=== PATIENT | female | born 1990 | race Caucasian/White ===

== ENCOUNTER 2019-11-27 20:16 | Emergency (ER) | payer MEDICAID, OTHER ==
[~2019-11-27] VITALS: Ht 165.1 cm; Wt 66.8 kg
[~2019-11-27 20:16] MED LIST: CYCL-1 PO; NABU500T2 PO
[2019-11-27 20:21] VITALS: BP 148/88
[2019-11-27] MEDS ORDERED: HYDROcodone/acetaminophen 5mg/325mg tablet PO ONE (20:45)
[2019-11-27] MEDS ORDERED: ondansetron 4mg rapidly disintigrating tab PO ONE (20:45)
[2019-11-27] MEDS ORDERED: PENI500T2 PO (20:46)
[2019-11-27] MEDS ORDERED: IBUP-1984 PO (20:46)
== END 2019-11-27 21:21 | disposition home or self-care (01) ==
LOC: ER 20:16
DX: K04.7 Periapical abscess without sinus (principal); F41.9 Anxiety disorder, unspecified; G89.29 Other chronic pain; J45.909 Unspecified asthma, uncomplicated; Z56.0 Unemployment, unspecified
CPT/HCPCS: 99281; 99283

== ENCOUNTER 2019-12-06 23:16 | Emergency (ER) | payer MEDICAID ==
[~2019-12-06] VITALS: Ht 167.6 cm; Wt 75.0 kg
[~2019-12-06 23:16] MED LIST changes: +PENI500T2 PO
--- NOTE | 2019-12-06 23:43 | NUR ---
Dr. Rodriguez came to evaluate the patient. Pt expressed concern about the pressure behind her left eye and reports she believes she needs to have a CT scan.
--- NOTE | 2019-12-07 00:20 | NUR ---
Pt to CT scan via w/c. Pt given a simple mask to wear while in CT and instructed to continue the use of the mask for her protection upon discharge to home.
--- NOTE | 2019-12-07 00:34 | NUR ---
Pt returned from CT to ED bed 16.
[2019-12-07 00:46] VITALS: BP 138/83
[2019-12-07] MEDS ORDERED: AMOX-422 PO (00:50)
== END 2019-12-07 01:07 | disposition home or self-care (01) ==
LOC: ER 23:16
DX: H57.12 Ocular pain, left eye (principal); J01.00 Acute maxillary sinusitis, unspecified; G89.29 Other chronic pain; F41.9 Anxiety disorder, unspecified; F15.90 Other stimulant use, unspecified, uncomplicated; R42 Dizziness and giddiness; Z56.0 Unemployment, unspecified
CPT/HCPCS: 70450; 70486; 99285

== ENCOUNTER 2023-05-06 12:31 | Inpatient (IN) | payer MEDICAID ==
[~2023-05-06] VITALS: Ht 165.1 cm; Wt 78.5 kg
[~2023-05-06 12:31] MED LIST changes: -CYCL-1 PO; +LURA20TA8 PO; -NABU500T2 PO; +NICO-668 BC; +NO HOME MEDS; -PENI500T2 PO
[2023-05-06] MEDS ORDERED: diphenhydrAMINE 50 mg/ml inj IM ONE (12:40)
[2023-05-06] MEDS ORDERED: haloperidol lactate 5mg/ml inj IM ONE (12:40)
[2023-05-06] MEDS ORDERED: LORazepam 2 mg/ml vial IM ONE (12:40)
[2023-05-06 13:20] LABS: EOSINOPHILS % (AUTO) 1.1 % (0-6); HEMATOCRIT 31.2 % (35.0-45.0); HEMOGLOBIN 9.5 g/dl (12.0-16.0); LYMPHOCYTES # (AUTO) 0.8 X10'3 (1.1-4.8); LYMPHOCYTES % (AUTO) 20.5 % (21-51); MEAN CORPUSCULAR HEMOGLOBIN 22.7 PG (27.0-31.0); MEAN CORPUSCULAR HGB CONC 30.4 g/dL (33.0-36.5); MEAN CORPUSCULAR VOLUME 74.8 FL (78-98); MEAN PLATELET VOLUME 7.6 FL (7.4-10.4); MONOCYTES # (AUTO) 0.4 X10'3 (0-0.9); MONOCYTES % (AUTO) 9.3 % (2-12); NEUTROPHILS # (AUTO) 2.6 X10'3 (1.8-7.7); NEUTROPHILS % (AUTO) 68.1 % (42-75); PLATELET COUNT 371 X10'3 (140-440); RED BLOOD COUNT 4.17 X10'6 (4.20-5.60); RED CELL DISTRIBUTION WIDTH 17.4 % (11.5-14.5); WHITE BLOOD COUNT 3.8 X10'3 (4.5-11.0)
[2023-05-06 13:34] LABS: ALANINE AMINOTRANSFERASE 12 U/L (12-78); ALBUMIN 3.8 G/DL (3.4-5.0); ALBUMIN/GLOBULIN RATIO 1.1 (1.1-1.5); ALKALINE PHOSPHATASE 51 IU/L (46-116); ANION GAP 17 (8-16); ASPARTATE AMINO TRANSFERASE 24 U/L (10-37); BILIRUBIN,TOTAL 0.5 MG/DL (0.1-1.0); BLOOD UREA NITROGEN 8 MG/DL (7-18); BUN/CREATININE RATIO 13.8 (10.0-20.0); CALCIUM 8.8 MG/DL (8.5-10.1); CHLORIDE 105 MMOL/L (99-107); CREATININE 0.58 MG/DL (0.40-0.90); GLUCOSE 134 MG/DL (70-104); SODIUM 143 MMOL/L (135-145); TOTAL CARBON DIOXIDE 20.8 MMOL/L (24-32); TOTAL PROTEIN 7.4 G/DL (6.4-8.2); eCRCL 133 ML/MIN; eGFR > 90 ML/MIN
[2023-05-06 13:43] LABS: ETHANOL < 10 MG/DL (<10); THYROID STIMULATING HORMONE 0.57 ulU/ml (0.34-4.50)
--- NOTE | 2023-05-06 13:52 | NUR ---
MOTHER MANAN NOAH [phone].
[2023-05-06 14:42] LABS: BILIRUBIN,URINE NEGATIVE (Neg); CLARITY,URINE SLIGHTLY CLOUDY (Clear); COLOR,URINE YELLOW (Yellow); GLUCOSE, URINE NEGATIVE (Neg); KETONES,URINE >=80 mg/dl (Neg); LEUKOCYTE ESTERASE ,URINE NEGATIVE (Neg); NITRITES, URINE NEGATIVE (Neg); OCCULT BLOOD,URINE NEGATIVE (Neg); PH,URINE 6.5 (4.8-8.0); PROTEIN,URINE TRACE mg/dl (Neg)
[2023-05-06 14:53] LABS: UA COLLECTION TYPE STRAIGHT CATH; URINE AMPHETAMINE SCREEN NEGATIVE (Neg); URINE BARBITUATE SCREEN NEGATIVE (Neg); URINE BENZODIAZEPINES SCREEN NEGATIVE (Neg); URINE CANNABINOID SCREEN NEGATIVE (Neg); URINE COCAINE SCREEN NEGATIVE (Neg); URINE METHADONE SCREEN NEGATIVE (Neg); URINE OPIATE SCREEN NEGATIVE (Neg); URINE PHENCYCLIDINE SCREEN NEGATIVE (Neg)
[2023-05-06 14:54] LABS: BACTERIA,URINE 1+ /HPF (Neg); MUCUS STRANDS MODERATE /LPF (Neg); RBC,URINE 0-2 /HPF (0-2); SQUAMOUS EPITHELIAL CELL,UR MODERATE /LPF (FEW); WBC,URINE 0-4 /HPF (0-4)
[2023-05-06] MEDS ORDERED: potassium Cl 20 mEq SR tablet PO ONE (15:15)
[2023-05-06] MEDS ORDERED: magnesium oxide 400mg tablet PO ONE (15:15)
[2023-05-06] MEDS ORDERED: traZODone 50mg tablet PO PRN (15:25)
[2023-05-06 15:28] LABS: MAGNESIUM 1.7 MG/DL (1.5-2.4)
--- NOTE | 2023-05-06 16:08 | NUR ---
[facility] PACKET SENT @[phone]
--- NOTE | 2023-05-06 18:18 | NUR ---
Report given to RN in overflow
--- NOTE | 2023-05-06 18:35 | NUR ---
The patient moved to bed 25 in the ER overflow. She ambulated without difficulty. She is currently cooperative but very sleepy. She denied that she is currently hearing voices. Awake only briefly and is now back asleep.
[2023-05-06] MEDS: OLANZapine 5mg rapidly disint. tablet PO SCH (20:07)
--- NOTE | 2023-05-06 21:00 | NUR ---
The patient appears to be sleeping
--- NOTE | 2023-05-06 21:55 | NUR ---
Nurse to nurse with [facility], [facility].
[2023-05-06 22:08] LABS: URINE HCG NEGATIVE (NEG)
--- NOTE | 2023-05-06 22:22 | NUR ---
The patient has been declined at [facility], [facility].
--- NOTE | 2023-05-06 23:32 | NUR ---
The patient appears to be sleeping
--- NOTE | 2023-05-07 01:21 | NUR ---
The patient appears to be sleeping
--- NOTE | 2023-05-07 03:00 | NUR ---
The patient appears to be sleeping
--- NOTE | 2023-05-07 05:04 | NUR ---
The patient appears to be sleeping
--- NOTE | 2023-05-07 07:00 | NUR ---
Pt resting in bed. No acute distress noted at this time.
[2023-05-07] MEDS: OLANZapine 5mg rapidly disint. tablet PO SCH ×2 (08:07→20:34)
--- NOTE | 2023-05-07 08:12 | NUR ---
Pt took morning meds with no issues. Pt sat up on bed and ate some of breakfast tray. Pt currently laying down resting with eyes closed. No acute distress noted at this time.
--- NOTE | 2023-05-07 09:36 | NUR ---
Pt currently resting in bed with eyes closed. No acute distress noted at this time.
[2023-05-07 11:34] VITALS: BP 133/87; PULSE 106; RESP 14; TEMP 97.8; O2SAT 100
[2023-05-07] MEDS ORDERED: NICOTINE POLACRILEX 2 MG LOZENGE BC PRN (11:45)
[2023-05-07] MEDS ORDERED: magnesium hydroxide 30ml (MOM) UD suspension PO PRN (11:45)
[2023-05-07] MEDS ORDERED: mag hydrox/Alum hydrox/simeth 30ml oral suspension PO PRN (11:45)
[2023-05-07] MEDS ORDERED: acetaminophen 325mg tablet PO PRN ×2 (11:45)
[2023-05-07] MEDS ORDERED: loperamide 2mg capsule PO PRN (11:45)
--- NOTE | 2023-05-07 13:23 | NUR ---
Malnutrition Consult: Pt admit DX anxiety d/o, PTSD, and unspecified psychosis reports 2-13 pounds wt loss w/ decreased intake [employer]ATCH[employer]KER [employer]ENTICE per EMR. Pt current standing scaled wt 81.8kg w/ last scaled wt 85.7kg 09/29/20 in EMR. Pt appears WD/WN per ER note w/ current scaled wt appropriate pending physical assessment though no wounds present per EMR. PO pending for initial meals though at this time pt lacks minimum two malnutrition criteria. Will monitor for further malnutrition criteria this admit. Addendum: 05/07/23 at [address] Amended: Links added.
[2023-05-07 14:11] VITALS: RESP 14; O2SAT 100
[2023-05-07] MEDS ORDERED: zolpidem 5mg tablet PO PRN (14:30)
[2023-05-07] MEDS ORDERED: hydrOXYzine 25 MG tablet PO PRN (14:30)
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
[2023-05-07 19:00] VITALS: BP 134/78; PULSE 104; RESP 16; TEMP 99.8; O2SAT 100
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
[2023-05-08 07:00] VITALS: RESP 14; O2SAT 100
[2023-05-08 07:21] VITALS: BP 127/83; PULSE 75; RESP 14; TEMP 98.5; O2SAT 97
[2023-05-08 07:54] LABS: ALANINE AMINOTRANSFERASE 8 U/L (12-78); ALBUMIN 3.6 G/DL (3.4-5.0); ALKALINE PHOSPHATASE 47 IU/L (46-116); ANION GAP 10 (8-16); ASPARTATE AMINO TRANSFERASE 15 U/L (10-37); BILIRUBIN,TOTAL 0.4 MG/DL (0.1-1.0); BLOOD UREA NITROGEN 12 MG/DL (7-18); BUN/CREATININE RATIO 20.3 (10.0-20.0); CALCIUM 8.9 MG/DL (8.5-10.1); CHLORIDE 108 MMOL/L (99-107); CHOL/HDL RATIO 3.4 (0.00-4.99); CHOLESTEROL 183 MG/DL (0-200); CREATININE 0.59 MG/DL (0.40-0.90); GLUCOSE 98 MG/DL (70-104); HDL CHOLESTEROL 54 MG/DL (35-60); LDL CHOLESTEROL 104 MG/DL (50-100); POTASSIUM 3.9 MMOL/L (3.5-5.1); SODIUM 142 MMOL/L (135-145); TOTAL CARBON DIOXIDE 24.1 MMOL/L (24-32); TOTAL PROTEIN 7.3 G/DL (6.4-8.2); TRIGLYCERIDES 88 MG/DL (20-135); eCRCL 121 ML/MIN; eGFR > 90 ML/MIN
[2023-05-08] MEDS ORDERED: nicotine 21mg patch - 24 hr TD SCH (08:00)
[2023-05-08] MEDS: OLANZapine 5mg rapidly disint. tablet PO SCH ×2 (08:14→20:12)
[2023-05-08 08:15] LABS: HEMOGLOBIN A1C 5.1 % (4.5-6.2)
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
[2023-05-08 19:31] VITALS: BP 134/76; PULSE 64; RESP 14; TEMP 99.5; O2SAT 98
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
[2023-05-09 07:00] VITALS: RESP 14; O2SAT 100
[2023-05-09 07:23] VITALS: BP 118/81; PULSE 74; RESP 16; TEMP 98.6; O2SAT 99
[2023-05-09] MEDS: OLANZapine 5mg rapidly disint. tablet PO SCH (07:45)
[2023-05-09] MEDS ORDERED: HYDR50TA65 PO (11:44)
[2023-05-09] MEDS ORDERED: OLAN5TAB29 SL (11:44)
[2023-05-09] MEDS ORDERED: NAPR-1170 PO (11:44)
--- NOTE | 2023-05-09 13:52 | NUR ---
Patient discharging back to her home
== END 2023-05-09 13:57 | disposition home or self-care (01) | DRG 750 ==
LOC: ER 12:31 → ED HOLD 05-07 09:35 → ADULT MH 05-07 11:40
PROVIDERS: ADMIT Psychiatry & Neurology Psychiatry; ATTEND Psychiatry & Neurology Psychiatry
DX: F25.0 Schizoaffective disorder, bipolar type (principal); F23 Brief psychotic disorder; D50.9 Iron deficiency anemia, unspecified; E87.6 Hypokalemia; F10.10 Alcohol abuse, uncomplicated; D72.819 Decreased white blood cell count, unspecified; F12.10 Cannabis abuse, uncomplicated; F43.12 Post-traumatic stress disorder, chronic; M19.90 Unspecified osteoarthritis, unspecified site; Z20.822 Contact with and (suspected) exposure to COVID-19; G89.29 Other chronic pain; M54.9 Dorsalgia, unspecified; J45.909 Unspecified asthma, uncomplicated; I10 Essential (primary) hypertension; Z79.899 Other long term (current) drug therapy; Z82.3 Family history of stroke; Z59.00 Homelessness unspecified; F43.10 Post-traumatic stress disorder, unspecified
CPT/HCPCS: 36415; 71045; 80053; 80061; 80305; 80320; 81001; 81025; 83036; 83735; 84443; 85025; 87081; 87811; 96372; 99285; C1758; J1200; J1630; J2060; Q0177

== ENCOUNTER 2023-10-10 21:30 | Inpatient (IN) | payer MEDICAID ==
[~2023-10-10] VITALS: Ht 167.6 cm; Wt 86.4 kg
[~2023-10-10 21:30] MED LIST changes: +DULO-79 PO; +FERR325T28 PO; +HYDR50TA65 PO; -LURA20TA8 PO; +NAPR-56 PO; -NICO-668 BC; -NO HOME MEDS; +OLAN5TAB5 PO; +PALI156D IM; +PANT40TA54 PO; +PROP10TA10 PO; +ZOLP5TAB8 PO
[2023-10-10] MEDS: normal saline 1000ml 1,000 ML IV ONE (21:50)
[2023-10-10] MEDS: normal saline 1000ML IV soln IVB ONE (22:10)
[2023-10-10] MEDS: ondansetron/PF 4mg/2ml inj IV ONE (22:41)
[2023-10-10] MEDS: morphine 2 MG/ML inj. syringe IV PRN (22:42)
[2023-10-10 23:30] LABS: BASOPHILS % (AUTO) 0.5 % (0-1); EOSINOPHILS % (AUTO) 0 % (0-6); HEMATOCRIT 41.8 % (35.0-45.0); HEMOGLOBIN 13.8 g/dl (12.0-16.0); LYMPHOCYTES # (AUTO) 0.6 X10'3 (1.1-4.8); LYMPHOCYTES % (AUTO) 6.9 % (21-51); MEAN CORPUSCULAR HEMOGLOBIN 29.7 PG (27.0-31.0); MEAN CORPUSCULAR HGB CONC 33.1 g/dL (33.0-36.5); MEAN CORPUSCULAR VOLUME 89.7 FL (78-98); MEAN PLATELET VOLUME 7.4 FL (7.4-10.4); MONOCYTES # (AUTO) 0.4 X10'3 (0-0.9); MONOCYTES % (AUTO) 4.7 % (2-12); NEUTROPHILS % (AUTO) 87.9 % (42-75); PLATELET COUNT 411 X10'3 (140-440); RED BLOOD COUNT 4.66 X10'6 (4.20-5.60); RED CELL DISTRIBUTION WIDTH 14.6 % (11.5-14.5)
[2023-10-10 23:40] LABS: ALANINE AMINOTRANSFERASE 31 U/L (12-78); ALBUMIN 3.1 G/DL (3.4-5.0); ALBUMIN/GLOBULIN RATIO 0.7 (1.1-1.5); ALKALINE PHOSPHATASE 53 IU/L (46-116); ASPARTATE AMINO TRANSFERASE 20 U/L (10-37); BILIRUBIN,DIRECT 0.1 MG/DL (0-0.3); BILIRUBIN,TOTAL 0.7 MG/DL (0.1-1.0); LIPASE 14 U/L (16-77); TOTAL PROTEIN 7.4 G/DL (6.4-8.2)
[2023-10-10 23:54] LABS: C-REACTIVE PROTEIN 47.18 MG/DL (0.0-0.5)
[2023-10-11] MEDS: loperamide 2mg capsule PO ONE (00:39)
[2023-10-11 01:01] LABS: URINE HCG NEGATIVE (NEG)
[2023-10-11 01:13] LABS: URINE AMPHETAMINE SCREEN NEGATIVE (Neg); URINE BARBITUATE SCREEN NEGATIVE (Neg); URINE BENZODIAZEPINES SCREEN NEGATIVE (Neg); URINE CANNABINOID SCREEN NEGATIVE (Neg); URINE COCAINE SCREEN NEGATIVE (Neg); URINE METHADONE SCREEN NEGATIVE (Neg); URINE OPIATE SCREEN POSITIVE (Neg); URINE PHENCYCLIDINE SCREEN NEGATIVE (Neg)
[2023-10-11] MEDS: piperacillin/tazo 4.5gm/100ml 100 ML IV ONE (01:17)
[2023-10-11 01:21] LABS: BILIRUBIN,URINE NEGATIVE (Neg); CLARITY,URINE SLIGHTLY CLOUDY (Clear); COLOR,URINE AMBER (Yellow); GLUCOSE, URINE NEGATIVE (Neg); KETONES,URINE NEGATIVE (Neg); LEUKOCYTE ESTERASE ,URINE NEGATIVE (Neg); NITRITES, URINE NEGATIVE (Neg); OCCULT BLOOD,URINE NEGATIVE (Neg); PROTEIN,URINE 30 mg/dl (Neg); UROBILINOGEN,URINE 0.2 E.U/dL (0.2-1.0)
[2023-10-11 01:22] LABS: UA COLLECTION TYPE CLN CATCH MIDSTREAM
[2023-10-11 01:43] LABS: MUCUS STRANDS MANY /LPF (Neg); SQUAMOUS EPITHELIAL CELL,UR MANY /LPF (FEW)
[2023-10-11 01:46] LABS: WBC,URINE 0-4 /HPF (0-4)
[2023-10-11 01:48] LABS: BACTERIA,URINE FEW /HPF (Neg)
[2023-10-11 04:21] LABS: ALANINE AMINOTRANSFERASE 31 U/L (12-78); ALBUMIN 2.9 G/DL (3.4-5.0); ALBUMIN/GLOBULIN RATIO 0.7 (1.1-1.5); ALKALINE PHOSPHATASE 52 IU/L (46-116); ANION GAP 15 (8-16); ASPARTATE AMINO TRANSFERASE 20 U/L (10-37); BILIRUBIN,TOTAL 0.6 MG/DL (0.1-1.0); BLOOD UREA NITROGEN 27 MG/DL (7-18); BUN/CREATININE RATIO 24.1 (10.0-20.0); CALCIUM 8.3 MG/DL (8.5-10.1); CHLORIDE 101 MMOL/L (99-107); CREATININE 1.12 MG/DL (0.40-0.90); GLUCOSE 107 MG/DL (70-104); POTASSIUM 3.4 MMOL/L (3.5-5.1); SODIUM 134 MMOL/L (135-145); TOTAL CARBON DIOXIDE 18.3 MMOL/L (24-32); TOTAL PROTEIN 7.3 G/DL (6.4-8.2); eCRCL 66 ML/MIN; eGFR 55 ML/MIN
[2023-10-11] MEDS: acetaminophen 1,000mg/100ml IV 100 ML IV SCH ×2 (04:22→04:24)
[2023-10-11] MEDS: normal saline 500ml IV soln 500 ML IV ONE (04:30)
[2023-10-11] MEDS ORDERED: magnesium Cl slow-release 64mg tablet PO PRN (04:45)
[2023-10-11] MEDS ORDERED: potassium Cl 20 mEq SR tablet PO PRN (04:45)
[2023-10-11] MEDS ORDERED: acetaminophen 325mg tablet PO PRN (04:45)
[2023-10-11] MEDS ORDERED: potassium Cl 40MEQ/1/2NS 520ml 520 ML IV PRN (04:45)
[2023-10-11] MEDS ORDERED: magnesium 2GM in 50ml NS 50 ML IV PRN (04:45)
[2023-10-11] MEDS ORDERED: metoclopramide 5 mg/ml inj IV PRN (04:45)
[2023-10-11] MEDS ORDERED: magnesium 4gm in 100ml NS 100 ML IV PRN (04:45)
[2023-10-11] MEDS: ringers solution, lacted 1,000 ML IV ONE ×2 (05:08→06:22)
[2023-10-11] MEDS ORDERED: lactobacillus acidophilus cap PO SCH (05:10)
[2023-10-11] MEDS: normal saline 1000ml 1,000 ML IV SCH (05:17)
[2023-10-11 05:45] LABS: OCCULT BLOOD STOOL POSITIVE (Neg)
[2023-10-11 05:57] LABS: ABG HCO3 17.4 mmol/L (22.0-26.0); ABG OXYGEN SATURATION 96.8 % (94-97); ABG PCO2 (T) 29.7 mmHg (32.0-45.0); ABG PO2 (T) 98.2 mmHg (75.0-100.0); ALLEN'S TEST POSITIVE; FCOHb 0.3 % (0.0-3.9); FHHb 3.2 % (0.0-5.0); FMetHb 0.9 % (0.0-1.5); FO2Hb 95.6 % (94-97); MODE ROOM AIR; PATIENT TEMPERATURE 37.7; TOTAL HEMOGLOBIN 13.2 G/dl (12.0-16.0)
[2023-10-11 06:27] LABS: C DIFF ANTIGEN NEGATIVE (NEGATIVE); C DIFF SPECIMEN=DIARRHEA? ACCEPTABLE; C DIFFICILE TOXINS A&B NEGATIVE (Neg)
[2023-10-11] MEDS: K and/or MAG REPLACEMENT MC SCH (08:00)
[2023-10-11 08:17] LABS: MAGNESIUM 1.6 MG/DL (1.5-2.4); PHOSPHORUS 3.4 MG/DL (2.3-4.5)
[2023-10-11] MEDS: lactobacillus rhamnosus 10,000 MMU CELLS/CAPSULE PO SCH (09:07)
[2023-10-11] MEDS: pantoprazole 40 MG vial IV SCH (09:07)
[2023-10-11] MEDS: piperacillin/tazo 3.375gm/50ml 50 ML IV SCH (09:56)
[2023-10-11 10:45] VITALS: BP 126/78; PULSE 123; RESP 14; TEMP 100; O2SAT 96
[2023-10-11] MEDS ORDERED: HYDROcodone/acetaminophen 5mg/325mg tablet PO PRN (12:45)
[2023-10-11] MEDS ORDERED: morphine 2 MG/ML inj. syringe IV PRN (12:45)
[2023-10-11 14:00] VITALS: BP 125/76; PULSE 137; RESP 16; TEMP 99.9; O2SAT 98
[2023-10-11] MEDS: loperamide 2mg capsule PO PRN (14:33)
[2023-10-11] MEDS: morphine 2 MG/ML inj. syringe IV PRN (14:34)
[2023-10-11] MEDS: ondansetron/PF 4mg/2ml inj IV PRN (14:58)
[2023-10-11] MEDS ORDERED: INDLA80C PO (17:01)
[2023-10-11] MEDS ORDERED: CARI1.5C PO (17:01)
[2023-10-11 18:00] VITALS: BP 101/59; PULSE 116; RESP 14; TEMP 98.5; O2SAT 91
[2023-10-11] MEDS: metoclopramide 5 mg/ml inj IV PRN (18:06)
[2023-10-11] MEDS: HYDROcodone/acetaminophen 10/325mg tab PO PRN (18:06)
[2023-10-11] MEDS: naproxen 500mg tablet PO SCH (20:00)
[2023-10-11] MEDS: pantoprazole 40mg Tablet.DR PO SCH (21:03)
[2023-10-11] MEDS: zolpidem 5mg tablet PO PRN (21:03)
[2023-10-11] MEDS: enoxaparin 40mg/0.4ml syringe SQ SCH (21:04)
[2023-10-11 22:00] VITALS: BP 124/69; PULSE 114; RESP 18; TEMP 100.5; O2SAT 96
[2023-10-11] MEDS: diphenoxylate/atropine tablet (Lomotil) PO PRN (23:45)
[2023-10-12] VITALS (10 sets, daily range): BP systolic 113–131; BP diastolic 63–84; PULSE 69–108; RESP 15–21; TEMP 97.5–99.8; O2SAT 96–98
[2023-10-12 06:25] LABS: ALANINE AMINOTRANSFERASE 23 U/L (12-78); ALBUMIN 2.5 G/DL (3.4-5.0); ALBUMIN/GLOBULIN RATIO 0.6 (1.1-1.5); ALKALINE PHOSPHATASE 48 IU/L (46-116); ANION GAP 11 (8-16); ASPARTATE AMINO TRANSFERASE 17 U/L (10-37); BILIRUBIN,TOTAL 0.4 MG/DL (0.1-1.0); BLOOD UREA NITROGEN 12 MG/DL (7-18); BUN/CREATININE RATIO 15.8 (10.0-20.0); CALCIUM 8.2 MG/DL (8.5-10.1); CHLORIDE 102 MMOL/L (99-107); CHOL/HDL RATIO 7.4 (0.00-4.99); CHOLESTEROL 178 MG/DL (0-200); CREATININE 0.76 MG/DL (0.40-0.90); GLUCOSE 91 MG/DL (70-104); HDL CHOLESTEROL 24 MG/DL (35-60); LDL CHOLESTEROL 99 MG/DL (50-100); POTASSIUM 3.5 MMOL/L (3.5-5.1); SODIUM 134 MMOL/L (135-145); TOTAL CARBON DIOXIDE 21.5 MMOL/L (24-32); TOTAL PROTEIN 6.6 G/DL (6.4-8.2); TRIGLYCERIDES 170 MG/DL (20-135); eCRCL 97 ML/MIN; eGFR 87 ML/MIN
[2023-10-12 06:40] LABS: BASOPHILS % (AUTO) 0.6 % (0-1); EOSINOPHILS % (AUTO) 0.1 % (0-6); HEMATOCRIT 33.8 % (35.0-45.0); HEMOGLOBIN 11.6 g/dl (12.0-16.0); LYMPHOCYTES # (AUTO) 0.9 X10'3 (1.1-4.8); LYMPHOCYTES % (AUTO) 20.1 % (21-51); MEAN CORPUSCULAR HEMOGLOBIN 30.1 PG (27.0-31.0); MEAN CORPUSCULAR HGB CONC 34.3 g/dL (33.0-36.5); MEAN CORPUSCULAR VOLUME 87.9 FL (78-98); MEAN PLATELET VOLUME 7.2 FL (7.4-10.4); MONOCYTES # (AUTO) 0.5 X10'3 (0-0.9); MONOCYTES % (AUTO) 10.4 % (2-12); NEUTROPHILS % (AUTO) 68.8 % (42-75); PLATELET COUNT 293 X10'3 (140-440); RED BLOOD COUNT 3.84 X10'6 (4.20-5.60); RED CELL DISTRIBUTION WIDTH 14.7 % (11.5-14.5); WHITE BLOOD COUNT 4.3 X10'3 (4.5-11.0)
[2023-10-12 08:31] LABS: MAGNESIUM 3.5 MG/DL (1.5-2.4)
[2023-10-12] MEDS: ferrous sulfate 325mg tablet PO SCH (08:31)
[2023-10-12] MEDS: duloxetine 30mg CAPSULE.DR PO SCH (08:31)
[2023-10-12] MEDS: propranolol LA 60 MG cap.SA.24H PO SCH (08:37)
[2023-10-12] MEDS: HYDROmorphone inj. 0.5 MG/0.5 ML DISP.SYRIN IV PRN (13:22)
[2023-10-13] VITALS (9 sets, daily range): BP systolic 107–137; BP diastolic 53–77; PULSE 62–95; RESP 13–20; TEMP 97.1–97.9; O2SAT 96–100
[2023-10-13] MEDS ORDERED: piperacillin/tazo 3.375gm/50ml 50 ML IV SCH
[2023-10-13] MEDS: CefTRIAXone/D5W-Rocephin 1gm 50 ML IV SCH (00:17)
[2023-10-13 06:47] LABS: BASOPHILS % (AUTO) 0.5 % (0-1); EOSINOPHILS # (AUTO) 0.1 X10'3 (0-0.9); EOSINOPHILS % (AUTO) 1.6 % (0-6); HEMATOCRIT 30.2 % (35.0-45.0); HEMOGLOBIN 10.3 g/dl (12.0-16.0); LYMPHOCYTES # (AUTO) 1.3 X10'3 (1.1-4.8); LYMPHOCYTES % (AUTO) 29.7 % (21-51); MEAN CORPUSCULAR HEMOGLOBIN 30.3 PG (27.0-31.0); MEAN CORPUSCULAR HGB CONC 34.3 g/dL (33.0-36.5); MEAN CORPUSCULAR VOLUME 88.4 FL (78-98); MEAN PLATELET VOLUME 6.9 FL (7.4-10.4); MONOCYTES # (AUTO) 0.7 X10'3 (0-0.9); MONOCYTES % (AUTO) 15.8 % (2-12); NEUTROPHILS # (AUTO) 2.2 X10'3 (1.8-7.7); NEUTROPHILS % (AUTO) 52.4 % (42-75); PLATELET COUNT 292 X10'3 (140-440); RED BLOOD COUNT 3.41 X10'6 (4.20-5.60); RED CELL DISTRIBUTION WIDTH 14.8 % (11.5-14.5); WHITE BLOOD COUNT 4.2 X10'3 (4.5-11.0)
[2023-10-13 06:53] LABS: ALANINE AMINOTRANSFERASE 28 U/L (12-78); ALBUMIN 2.2 G/DL (3.4-5.0); ALBUMIN/GLOBULIN RATIO 0.6 (1.1-1.5); ALKALINE PHOSPHATASE 50 IU/L (46-116); ANION GAP 10 (8-16); ASPARTATE AMINO TRANSFERASE 28 U/L (10-37); BILIRUBIN,TOTAL 0.2 MG/DL (0.1-1.0); BLOOD UREA NITROGEN 3 MG/DL (7-18); BUN/CREATININE RATIO 5.9 (10.0-20.0); CALCIUM 7.8 MG/DL (8.5-10.1); CHLORIDE 105 MMOL/L (99-107); CREATININE 0.51 MG/DL (0.40-0.90); GLUCOSE 83 MG/DL (70-104); MAGNESIUM 1.6 MG/DL (1.5-2.4); POTASSIUM 3.3 MMOL/L (3.5-5.1); SODIUM 138 MMOL/L (135-145); TOTAL CARBON DIOXIDE 22.8 MMOL/L (24-32); TOTAL PROTEIN 6.1 G/DL (6.4-8.2); eCRCL 144 ML/MIN; eGFR > 90 ML/MIN
[2023-10-13] MEDS: potassium Cl 20 mEq SR tablet PO PRN (08:29)
[2023-10-13 10:09] LABS: ANISOCYTOSIS FEW; PLATELET ESTIMATE NORMAL; POIKILOCYTOSIS FEW; TOTAL CELLS COUNTED 100
[2023-10-13] MEDS: levoFLOXACIN-Levaquin 500mg/D5 100 ML IV SCH (11:41)
[2023-10-14] VITALS (8 sets, daily range): BP systolic 98–113; BP diastolic 17–71; PULSE 69–78; RESP 15–18; TEMP 97.1–98.2; O2SAT 95–99
[2023-10-14 06:50] LABS: BASOPHILS % (AUTO) 0.4 % (0-1); EOSINOPHILS # (AUTO) 0.1 X10'3 (0-0.9); EOSINOPHILS % (AUTO) 1.7 % (0-6); HEMATOCRIT 32.7 % (35.0-45.0); HEMOGLOBIN 11.2 g/dl (12.0-16.0); LYMPHOCYTES # (AUTO) 1.1 X10'3 (1.1-4.8); LYMPHOCYTES % (AUTO) 20.9 % (21-51); MEAN CORPUSCULAR HEMOGLOBIN 30.2 PG (27.0-31.0); MEAN CORPUSCULAR HGB CONC 34.1 g/dL (33.0-36.5); MEAN CORPUSCULAR VOLUME 88.4 FL (78-98); MEAN PLATELET VOLUME 6.5 FL (7.4-10.4); MONOCYTES # (AUTO) 0.9 X10'3 (0-0.9); MONOCYTES % (AUTO) 16.2 % (2-12); NEUTROPHILS # (AUTO) 3.2 X10'3 (1.8-7.7); NEUTROPHILS % (AUTO) 60.8 % (42-75); PLATELET COUNT 328 X10'3 (140-440); RED CELL DISTRIBUTION WIDTH 14.6 % (11.5-14.5); WHITE BLOOD COUNT 5.3 X10'3 (4.5-11.0)
[2023-10-14 07:13] LABS: ALANINE AMINOTRANSFERASE 26 U/L (12-78); ALBUMIN 2.5 G/DL (3.4-5.0); ALBUMIN/GLOBULIN RATIO 0.6 (1.1-1.5); ALKALINE PHOSPHATASE 57 IU/L (46-116); ANION GAP 9 (8-16); ASPARTATE AMINO TRANSFERASE 15 U/L (10-37); BILIRUBIN,TOTAL 0.3 MG/DL (0.1-1.0); BLOOD UREA NITROGEN 2 MG/DL (7-18); BUN/CREATININE RATIO 4.4 (10.0-20.0); CALCIUM 8.5 MG/DL (8.5-10.1); CHLORIDE 104 MMOL/L (99-107); CREATININE 0.45 MG/DL (0.40-0.90); GLUCOSE 91 MG/DL (70-104); MAGNESIUM 1.6 MG/DL (1.5-2.4); POTASSIUM 3.2 MMOL/L (3.5-5.1); SODIUM 137 MMOL/L (135-145); TOTAL CARBON DIOXIDE 24.5 MMOL/L (24-32); TOTAL PROTEIN 6.7 G/DL (6.4-8.2); eCRCL 163 ML/MIN; eGFR > 90 ML/MIN
[2023-10-14] MEDS ORDERED: magnesium Cl slow-release 64mg tablet PO PRN (07:55)
[2023-10-14] MEDS ORDERED: potassium Cl 20 mEq SR tablet PO PRN (07:55)
[2023-10-14 08:01] LABS: PLATELET ESTIMATE NORMAL; TOTAL CELLS COUNTED 100
[2023-10-14] MEDS: potassium Cl 20 mEq SR tablet PO PRN (09:53)
[2023-10-14 10:20] LABS: HIV ANTIBODY 1&2 RAPID NON-REACTIVE (Neg)
[2023-10-14 10:58] LABS: CHLAMYDIA TRACHOMATIS, NAA Negative (Negative)
[2023-10-14] MEDS ORDERED: LOPE2CAP PO (12:05)
[2023-10-14] MEDS ORDERED: ONDA4TAB12 PO (12:05)
[2023-10-14] MEDS ORDERED: LEVO-65 PO (12:05)
[2023-10-15 02:00] VITALS: BP 107/72; PULSE 71; RESP 18; TEMP 98.3; O2SAT 96
[2023-10-15 06:00] VITALS: BP 106/66; PULSE 77; RESP 18; TEMP 98.4; O2SAT 95
[2023-10-15 07:09] LABS: BASOPHILS % (AUTO) 0.8 % (0-1); EOSINOPHILS # (AUTO) 0.2 X10'3 (0-0.9); EOSINOPHILS % (AUTO) 4.7 % (0-6); HEMATOCRIT 32.9 % (35.0-45.0); HEMOGLOBIN 11.2 g/dl (12.0-16.0); MEAN CORPUSCULAR VOLUME 88.2 FL (78-98); MEAN PLATELET VOLUME 6.5 FL (7.4-10.4); MONOCYTES # (AUTO) 0.9 X10'3 (0-0.9); MONOCYTES % (AUTO) 16.9 % (2-12); NEUTROPHILS # (AUTO) 2.1 X10'3 (1.8-7.7); NEUTROPHILS % (AUTO) 39.6 % (42-75); PLATELET COUNT 407 X10'3 (140-440); RED BLOOD COUNT 3.73 X10'6 (4.20-5.60); RED CELL DISTRIBUTION WIDTH 14.8 % (11.5-14.5); WHITE BLOOD COUNT 5.2 X10'3 (4.5-11.0)
[2023-10-15 07:33] LABS: ALANINE AMINOTRANSFERASE 24 U/L (12-78); ALBUMIN 2.5 G/DL (3.4-5.0); ALBUMIN/GLOBULIN RATIO 0.6 (1.1-1.5); ALKALINE PHOSPHATASE 56 IU/L (46-116); ANION GAP 9 (8-16); ASPARTATE AMINO TRANSFERASE 19 U/L (10-37); BILIRUBIN,TOTAL 0.3 MG/DL (0.1-1.0); BLOOD UREA NITROGEN 4 MG/DL (7-18); BUN/CREATININE RATIO 7.4 (10.0-20.0); CALCIUM 8.4 MG/DL (8.5-10.1); CHLORIDE 108 MMOL/L (99-107); CREATININE 0.54 MG/DL (0.40-0.90); GLUCOSE 87 MG/DL (70-104); MAGNESIUM 1.6 MG/DL (1.5-2.4); POTASSIUM 3.7 MMOL/L (3.5-5.1); SODIUM 142 MMOL/L (135-145); TOTAL CARBON DIOXIDE 25.3 MMOL/L (24-32); TOTAL PROTEIN 6.7 G/DL (6.4-8.2); eCRCL 136 ML/MIN; eGFR > 90 ML/MIN
[2023-10-15 08:00] VITALS: RESP 18; O2SAT 95
[2023-10-15] MEDS ORDERED: HYDR-3965 PO (08:56)
[2023-10-15 09:06] VITALS: RESP 17
== END 2023-10-15 12:35 | disposition home or self-care (01) | DRG 720 ==
LOC: ER 21:32 → ED HOLD 10-11 04:45 → PCU 3S 10-11 10:31
PROVIDERS: ADMIT Family Medicine; ATTEND Internal Medicine
DX: A41.9 Sepsis, unspecified organism (principal); N17.0 Acute kidney failure with tubular necrosis; E87.20 Acidosis, unspecified; E44.1 Mild protein-calorie malnutrition; A02.0 Salmonella enteritis; F43.10 Post-traumatic stress disorder, unspecified; J45.909 Unspecified asthma, uncomplicated; F41.9 Anxiety disorder, unspecified; G89.29 Other chronic pain; M54.9 Dorsalgia, unspecified; Z20.822 Contact with and (suspected) exposure to COVID-19; E86.0 Dehydration; I10 Essential (primary) hypertension; E87.6 Hypokalemia; E86.1 Hypovolemia; E87.1 Hypo-osmolality and hyponatremia; E88.09 Other disorders of plasma-protein metabolism, not elsewhere classified; F15.10 Other stimulant abuse, uncomplicated; Z79.899 Other long term (current) drug therapy; Z68.30 Body mass index [BMI] 30.0-30.9, adult
CPT/HCPCS: 36415; 36600; 71045; 74176; 80053; 80061; 80076; 80305; 81001; 81025; 82272; 82803; 83605; 83690; 83735; 84100; 84145; 85007; 85018; 85025; 86140; 86703; 87040; 87045; 87046; 87077; 87081; 87186; 87324; 87449; 87491; 87502; 87503; 87591; 87634; 87811; 89055; 93005; 99285; A6250; C9113; G0378; J0131; J0696; J1170; J1650; J1956; J2270; J2405; J2543; J2765; J7030; J7040; J7120

== ENCOUNTER 2023-12-20 08:15 | Emergency (ER) | payer MEDICAID ==
[~2023-12-20] VITALS: Ht 167.6 cm; Wt 100.0 kg
[~2023-12-20 08:15] MED LIST changes: +CARI1.5C PO; -HYDR50TA65 PO; +INDLA80C PO; +LOPE2CAP PO; -OLAN5TAB5 PO; +ONDA4TAB12 PO; -PALI156D IM; -PROP10TA10 PO
[2023-12-20 08:20] VITALS: BP 133/67; PULSE 71; RESP 18; TEMP 97; O2SAT 100
[2023-12-20] MEDS ORDERED: TRAM50TA2 PO (09:38)
== END 2023-12-20 10:41 | disposition home or self-care (01) ==
LOC: ER 08:16
DX: S93.401A Sprain of unspecified ligament of right ankle, initial encounter (principal); J45.909 Unspecified asthma, uncomplicated; F15.90 Other stimulant use, unspecified, uncomplicated; Z79.899 Other long term (current) drug therapy; X50.1XXA Overexertion from prolonged static or awkward postures, initial encounter; Y93.89 Activity, other specified; Y92.89 Other specified places as the place of occurrence of the external cause; Y99.8 Other external cause status
CPT/HCPCS: 73610; 73630; 99284; L4360

== ENCOUNTER 2024-01-14 09:41 | Emergency (ER) | payer MEDICAID ==
[~2024-01-14] VITALS: Ht 165.1 cm; Wt 98.0 kg
[~2024-01-14 09:41] MED LIST changes: +TRAM50TA2 PO
[2024-01-14 10:01] VITALS: BP 144/79; PULSE 78; RESP 18; TEMP 97.2; O2SAT 98
[2024-01-14 12:54] LABS: BASOPHILS % (AUTO) 0.6 % (0-1); EOSINOPHILS # (AUTO) 0.1 X10'3 (0-0.9); EOSINOPHILS % (AUTO) 1.5 % (0-6); HEMATOCRIT 39.1 % (35.0-45.0); HEMOGLOBIN 13.2 g/dl (12.0-16.0); LYMPHOCYTES # (AUTO) 1.9 X10'3 (1.1-4.8); LYMPHOCYTES % (AUTO) 26.4 % (21-51); MEAN CORPUSCULAR HEMOGLOBIN 30.8 PG (27.0-31.0); MEAN CORPUSCULAR HGB CONC 33.7 g/dL (33.0-36.5); MEAN CORPUSCULAR VOLUME 91.5 FL (78-98); MEAN PLATELET VOLUME 7.3 FL (7.4-10.4); MONOCYTES # (AUTO) 0.6 X10'3 (0-0.9); MONOCYTES % (AUTO) 7.8 % (2-12); NEUTROPHILS # (AUTO) 4.6 X10'3 (1.8-7.7); NEUTROPHILS % (AUTO) 63.7 % (42-75); PLATELET COUNT 570 X10'3 (140-440); RED BLOOD COUNT 4.27 X10'6 (4.20-5.60); RED CELL DISTRIBUTION WIDTH 12.6 % (11.5-14.5); WHITE BLOOD COUNT 7.2 X10'3 (4.5-11.0)
[2024-01-14 13:07] LABS: ALANINE AMINOTRANSFERASE 32 U/L (12-78); ALBUMIN 3.9 G/DL (3.4-5.0); ALBUMIN/GLOBULIN RATIO 0.8 (1.1-1.5); ALKALINE PHOSPHATASE 80 IU/L (46-116); ANION GAP 11 (8-16); ASPARTATE AMINO TRANSFERASE 17 U/L (10-37); BILIRUBIN,TOTAL 0.3 MG/DL (0.1-1.0); BLOOD UREA NITROGEN 2 MG/DL (7-18); BUN/CREATININE RATIO 3.4 (10.0-20.0); CALCIUM 9.4 MG/DL (8.5-10.1); CHLORIDE 102 MMOL/L (99-107); CREATININE 0.58 MG/DL (0.40-0.90); GLUCOSE 91 MG/DL (70-104); LIPASE 33 U/L (16-77); POTASSIUM 3.4 MMOL/L (3.5-5.1); SODIUM 140 MMOL/L (135-145); TOTAL CARBON DIOXIDE 26.7 MMOL/L (24-32); TOTAL PROTEIN 8.8 G/DL (6.4-8.2); eCRCL 122 ML/MIN; eGFR > 90 ML/MIN
[2024-01-14] MEDS: dicyclomine 10 MG capsule PO ONE (15:02)
[2024-01-14] MEDS: morphine 4 MG/ML inj SYRINge IM ONE (15:48)
[2024-01-14 15:55] LABS: BILIRUBIN,URINE NEGATIVE (Neg); CLARITY,URINE CLEAR (Clear); COLOR,URINE YELLOW (Yellow); GLUCOSE, URINE NEGATIVE (Neg); KETONES,URINE TRACE mg/dl (Neg); LEUKOCYTE ESTERASE ,URINE NEGATIVE (Neg); NITRITES, URINE NEGATIVE (Neg); OCCULT BLOOD,URINE TRACE-INTACT (Neg); PROTEIN,URINE 30 mg/dl (Neg); UROBILINOGEN,URINE 0.2 E.U/dL (0.2-1.0)
[2024-01-14 16:02] LABS: UA COLLECTION TYPE NON-SPECIFIED
[2024-01-14 16:03] LABS: SQUAMOUS EPITHELIAL CELL,UR MANY /LPF (FEW); URINE AMPHETAMINE SCREEN NEGATIVE (Neg); URINE BARBITUATE SCREEN NEGATIVE (Neg); URINE BENZODIAZEPINES SCREEN NEGATIVE (Neg); URINE CANNABINOID SCREEN NEGATIVE (Neg); URINE COCAINE SCREEN NEGATIVE (Neg); URINE METHADONE SCREEN NEGATIVE (Neg); URINE OPIATE SCREEN NEGATIVE (Neg); URINE PHENCYCLIDINE SCREEN NEGATIVE (Neg)
[2024-01-14 16:04] LABS: BACTERIA,URINE FEW /HPF (Neg); WBC,URINE 0-4 /HPF (0-4)
[2024-01-14 16:09] LABS: URINE HCG NEGATIVE (NEG)
[2024-01-14] MEDS ORDERED: DICY20TA17 PO (16:20)
== END 2024-01-14 16:28 | disposition home or self-care (01) ==
LOC: ER 09:42
DX: R10.9 Unspecified abdominal pain (principal); J45.909 Unspecified asthma, uncomplicated; M19.90 Unspecified osteoarthritis, unspecified site; G89.29 Other chronic pain; M54.9 Dorsalgia, unspecified
CPT/HCPCS: 36415; 80053; 80305; 81001; 81025; 83690; 85025; 96372; 99283; J2270

== ENCOUNTER 2024-01-18 05:28 | Emergency (ER) | payer MEDICAID ==
[~2024-01-18] VITALS: Ht 165.1 cm; Wt 91.0 kg
[~2024-01-18 05:28] MED LIST changes: +DICY20TA17 PO
[2024-01-18 05:34] VITALS: BP 169/100; PULSE 94; TEMP 98.2; O2SAT 99
[2024-01-18 13:04] VITALS: RESP 16
[2024-01-18] MEDS ORDERED: MELO-102 PO (13:37)
== END 2024-01-18 14:56 | disposition home or self-care (01) ==
LOC: ER 05:29
DX: M53.3 Sacrococcygeal disorders, not elsewhere classified (principal); J45.909 Unspecified asthma, uncomplicated; M19.90 Unspecified osteoarthritis, unspecified site; F15.90 Other stimulant use, unspecified, uncomplicated; Z79.899 Other long term (current) drug therapy; Z79.2 Long term (current) use of antibiotics; W19.XXXA Unspecified fall, initial encounter; Y93.89 Activity, other specified; Y92.89 Other specified places as the place of occurrence of the external cause; Y99.8 Other external cause status
CPT/HCPCS: 72220; 99283

== ENCOUNTER 2024-02-15 19:03 | Emergency (ER) | payer MEDICAID ==
[~2024-02-15] VITALS: Ht 167.6 cm; Wt 100.0 kg
[~2024-02-15 19:03] MED LIST changes: +MELO-102 PO
[2024-02-15 20:16] LABS: BASOPHILS # (AUTO) 0.1 X10'3 (0-0.2); BASOPHILS % (AUTO) 0.9 % (0-1); EOSINOPHILS # (AUTO) 0.3 X10'3 (0-0.9); EOSINOPHILS % (AUTO) 2.7 % (0-6); HEMATOCRIT 41.3 % (35.0-45.0); HEMOGLOBIN 14.2 g/dl (12.0-16.0); LYMPHOCYTES # (AUTO) 3.8 X10'3 (1.1-4.8); LYMPHOCYTES % (AUTO) 36.5 % (21-51); MEAN CORPUSCULAR HEMOGLOBIN 30.6 PG (27.0-31.0); MEAN CORPUSCULAR HGB CONC 34.4 g/dL (33.0-36.5); MEAN CORPUSCULAR VOLUME 89.2 FL (78-98); MEAN PLATELET VOLUME 6.8 FL (7.4-10.4); MONOCYTES # (AUTO) 0.8 X10'3 (0-0.9); MONOCYTES % (AUTO) 7.8 % (2-12); NEUTROPHILS # (AUTO) 5.5 X10'3 (1.8-7.7); NEUTROPHILS % (AUTO) 52.1 % (42-75); PLATELET COUNT 511 X10'3 (140-440); RED BLOOD COUNT 4.63 X10'6 (4.20-5.60); RED CELL DISTRIBUTION WIDTH 13.3 % (11.5-14.5); WHITE BLOOD COUNT 10.5 X10'3 (4.5-11.0)
[2024-02-15 20:51] LABS: ALBUMIN 4.2 G/DL (3.4-5.0); ANION GAP 13 (8-16); BLOOD UREA NITROGEN 10 MG/DL (7-18); BUN/CREATININE RATIO 17.2 (10.0-20.0); CALCIUM 9.4 MG/DL (8.5-10.1); CHLORIDE 103 MMOL/L (99-107); CREATININE 0.58 MG/DL (0.40-0.90); GLUCOSE 109 MG/DL (70-104); POTASSIUM 3.9 MMOL/L (3.5-5.1); PRO BRAIN NATRIURETIC PEPTIDE < 30 PG/ML (0-125); SODIUM 141 MMOL/L (135-145); TOTAL CARBON DIOXIDE 24.8 MMOL/L (24-32); eCRCL 127 ML/MIN; eGFR > 90 ML/MIN
[2024-02-15] MEDS: diazepam inj 5 MG/ML inj. IV ONE ×2 (21:06→21:38)
[2024-02-15 21:09] LABS: BILIRUBIN,URINE NEGATIVE (Neg); CLARITY,URINE CLEAR (Clear); COLOR,URINE STRAW (Yellow); GLUCOSE, URINE NEGATIVE (Neg); KETONES,URINE NEGATIVE (Neg); LEUKOCYTE ESTERASE ,URINE NEGATIVE (Neg); NITRITES, URINE NEGATIVE (Neg); OCCULT BLOOD,URINE NEGATIVE (Neg); PH,URINE 5.5 (4.8-8.0); PROTEIN,URINE NEGATIVE (Neg); UROBILINOGEN,URINE 0.2 E.U/dL (0.2-1.0)
[2024-02-15 21:11] LABS: URINE HCG NEGATIVE (NEG)
[2024-02-15 21:14] LABS: UA COLLECTION TYPE CLN CATCH MIDSTREAM
[2024-02-15 21:23] LABS: URINE AMPHETAMINE SCREEN NEGATIVE (Neg); URINE BARBITUATE SCREEN NEGATIVE (Neg); URINE BENZODIAZEPINES SCREEN NEGATIVE (Neg); URINE CANNABINOID SCREEN NEGATIVE (Neg); URINE COCAINE SCREEN NEGATIVE (Neg); URINE METHADONE SCREEN NEGATIVE (Neg); URINE OPIATE SCREEN NEGATIVE (Neg); URINE PHENCYCLIDINE SCREEN NEGATIVE (Neg)
[2024-02-15 21:31] LABS: FREE T4 (FREE THYROXINE) 0.74 NG/DL (0.73-1.40); MAGNESIUM 1.9 MG/DL (1.5-2.4)
[2024-02-16 00:57] VITALS: BP 159/94; PULSE 90; RESP 14; TEMP 98.4; O2SAT 98
== END 2024-02-16 01:00 | disposition home or self-care (01) ==
LOC: ER 19:04
DX: F41.9 Anxiety disorder, unspecified (principal); I10 Essential (primary) hypertension; Z20.822 Contact with and (suspected) exposure to COVID-19; R52 Pain, unspecified; J45.909 Unspecified asthma, uncomplicated; F15.90 Other stimulant use, unspecified, uncomplicated; M19.90 Unspecified osteoarthritis, unspecified site; Z79.899 Other long term (current) drug therapy; Z79.2 Long term (current) use of antibiotics
CPT/HCPCS: 36415; 71045; 80048; 80305; 81003; 81025; 83605; 83735; 83880; 84145; 84439; 84443; 84484; 85025; 87040; 87502; 87503; 87634; 87811; 93005; 96374; 96376; 99285; J3360

== ENCOUNTER 2024-12-28 18:12 | Emergency (ER) | payer MEDICAID ==
[~2024-12-28] VITALS: Ht 165.1 cm; Wt 106.9 kg
[~2024-12-28 18:12] MED LIST changes: +ONDA-243 PO; -ONDA4TAB12 PO
[2024-12-28] MEDS: amox tr/potassium clavulanate 875/125mg TAB PO ONE (19:15)
[2024-12-28] MEDS: LIDOcaine 2% Viscous 15ml cup MM ONE (19:15)
[2024-12-28] MEDS: ketorolac trometh 15mg/ml vial 15 MG/ML ML IM ONE (19:15)
[2024-12-28] MEDS: BUPIVAcaine 0.5% W/EPI /PF 10ml vial IJ STA (19:16)
--- NOTE | 2024-12-28 19:35 | Physician Documentation ---
HPI ~ General Chief Complaint: Tooth Problem Stated Complaint: TOOTH PAIN Time Seen by MD: 18:40 Primary Medical Doctor: [facility] DR. RIOS History of Present Illness HPI Comment This 34-year-old female with a history of multiple broken tooth presents with pain to broken teeth to the left upper and lower anterior mouth, patient reports she has dental appointments for extractions however these are at least a month away. Patient reports ibuprofen and Tylenol have not been managing her pain while at home. Patient reports no fever, difficulty breathing, or difficulty swallowing. Medication Reconciliation Allergies: Coded Allergies: No Known Allergies (Unverified , 12/28/24) Scheduled Amox Tr/Potassium Clavulanate 875/125 MG (Augmentin 875/125 MG), 1 TAB PO BID Cariprazine Hydrochloride (Vraylar), 1.5 PO DAILY, (Reported) Dicyclomine HCl (Dicyclomine HCl), 1 TAB PO Q8H Duloxetine HCl (Drizalma Sprinkle), 1 CAP PO DAILY, (Reported) Ferrous Sulfate* (Ferrous Sulfate*), 1 TAB PO DAILY, (Reported) Ibuprofen (Ibuprofen), 1 TAB PO Q8H Meloxicam (Meloxicam), 1 TAB PO DAILY Naproxen (Naproxen), 1 TAB PO BID, (Reported) Pantoprazole Sodium (Pantoprazole Sodium), 40 MG PO BID, (Reported) Propranolol Hcl (Propranolol Hcl), 1 CAP PO QAM, (Reported) Scheduled PRN Loperamide Hcl (Loperamide), 2 MG PO Q6H PRN for diarrhea ONDANSETRON ODT 4mg tablet (Ondansetron Odt), 1 TAB PO Q6H PRN PRN for nausea/vomiting Tramadol HCl (Tramadol HCl), 1-2 TAB PO Q12H PRN PRN for pain Zolpidem Tartrate (Zolpidem Tartrate), 5 MG PO HS PRN for sleep Past Medical History Past Medical History: Asthma, Arthritis, Chronic Pain, Chronic Back Pain, Anxiety Past Surgical History: no surgical history Patient History: FH: CVA (cerebrovascular accident) MOTHER FH: hypertension FATHER Alcohol Use: None Drug Use: methamphetamine Lives with: Mother Lives In: Home Occupation: unemployed Physical Exam Vital Signs: Temperature: 97.8, Source: Temporal, Heart Rate: 72, Respiratory Rate: 18, BP: 135/80, Pulse Oximetry: 98, Weight: 106.890 Physical Exam VITALS: Reviewed and as above. GENERAL: Alert, nontoxic appearing, no apparent distress. HEENT: Left upper premolar broken, left lower premolar broken, no gingival erythema or swelling, no fluctuant areas, no discharge, uvula midline, no submandibular swelling or tongue elevation RESPIRATORY: No increased work of breathing, no respiratory distress, speaking in full clear sentences Procedures Nerve Block Nerve Block Site: Multiple left dental sites Anesthetic Used: bupivacaine Volume Anesthetic (ccs): 6 Tolerated Procedure Well?: yes, no complications Procedure Note Multiple dental injections were made to the left maxilla and mandible with 2 mL of 0.5% bupivacaine with epinephrine check today's each site as follows: Left upper periosteal of 1st premolar, left lower periosteal of 1st premolar, and lef t inferior alveolar. Progress Results/Orders Results/Orders Completed Orders - MARILYN BLISS PRODUCT MANAGEMENT SPECIALIST Amox Tr/Potassium Clavulanate (Augmentin (12/28/24 19:05) Ketorolac Trometh 15mg/Ml Vial (Toradol (12/28/24 19:05) Bupivacaine 0.5% W/Epi/Pf (Sensorcaine-E (12/28/24 19:01) Lidocaine 2% Viscous (Xylocaine 2% Visco (12/28/24 19:05) Medications Received in ER Medications (Trade) Dose Ordered Sig/Andrew Route PRN Reason Start Time Stop Time Status Last Admin Dose Admin (Augmentin 875-125mg tablet) 1 tab ONCE ONCE PO 12/28/24 19:05 12/28/24 19:06 DC 12/28/24 19:15 1 TAB (Toradol injection) 15 mg ONCE ONCE IM 12/28/24 19:05 12/28/24 19:06 DC 12/28/24 19:15 15 MG (Sensorcaine-EPI 0.5%-0.0005% inj) 6 ml ONCE STAT IJ 12/28/24 19:01 12/28/24 19:04 DC 12/28/24 19:16 6 ML (Xylocaine 2% Viscous 15mL cup) 15 ml ONCE ONCE MM 12/28/24 19:05 12/28/24 19:06 DC 12/28/24 19:15 15 ML Vital Signs 4/29/25 4/29/25 18:14 20:37 Temp 97.8 98.6 Pulse 72 70 Resp 18 18 B/P (MAP) 135/80 134/78 Pulse Ox 98 99 Medical Decision Making Findings This well appearing 34-year-old female with history of multiple dental fractures awaiting extraction by oral surgeon presented with dental pain to the left upper 1st premolar and left lower 1st premolar. Based on history and physical exam I have low clinical suspicion for peritonsillar abscess, uvulitis, deep tissue space infection of the head/neck, or impending airway compromise. There was no submandibular swelling or elevation of the tongue, the uvula was midline, patient is able to swallow fluids and secretion without difficulty, there is no increased work of breathing or noisy breathing. Based on presentation I am concerned for risk of odontogenic infection and antibiotic treatment with Augmentin is indicated. Pain control with non-narcotic medications is appropriate at this time. Multiple digital injections provided in department with significant decrease in pain, patient additionally medicated for pain with Toradol injection in department and discharged with prescriptions for ibuprofen and antibiotics. Patient provided careful return to care precautions and instructed to follow up with a dentist as soon as possible, patient verbalized understanding of these in structions. Differential Dx:Considerations: Include: Alveolar fracture, Alveolar osteitis, ANUG, Facial Cellulitis, Periapical abscess, Peridontal abscess, Pulpitis, Tooth avulsion, Tooth Fracture Departure Time of Disposition: 19:35 Disposition: 01 HOME / SELF CARE / HOMELESS Impression: Primary Impression: Toothache Condition: Improved Discharge Instructions: Dental Pain Additional Instructions: Please follow up as soon as possible with a dentist. Please take the prescribed antibiotics until they are gone. Please use the prescribed high-dose ibuprofen as needed up to 3 times a day starting tomorrow as you received a dose of Toradol tonight which we will replace this dose of ibuprofen for the next 12 hours, take the ibuprofen with food to avoid stomach upset. You may also take 1000 mg of Tylenol 4 times a day. Please also follow up with your primary care provider in the next few days, consider following up with the prescriber who manages your chronic back pain to discuss additional medications for your tooth pain. Please return to the emergency department for any new or worsening concerning symptoms. Referrals: NO PRIMARY CARE PROVIDER (PCP) Prescriptions Amox Tr/Potassium Clavulanate 875/125 MG (Augmentin 875/125 MG) 875 Mg-125 Mg Tablet 1 TAB PO BID for 7 Days, #14 TAB Prov: MARILYN BLISS 12/28/24 Ibuprofen (Ibuprofen) 800 Mg Tablet 1 TAB PO Q8H for pain for 10 Days, #30 TAB 0 Refills Prov: MARILYN BLISS 12/28/24 Education Educated: Patient Educated regarding: diagnosis, treatment, prognosis, need for follow up Signature Scribe Signature: No scribe Attestation: The note accurately reflects work and decisions made by me.VERONIQUE Delacruz 12/28/24 20:41 MARILYN BLISS Dec 28, 2024 19:35
[2024-12-28] MEDS ORDERED: AMOX-580 PO (19:39)
[2024-12-28] MEDS ORDERED: IBUP-1986 PO (19:39)
[2024-12-28 20:37] VITALS: BP 134/78; PULSE 70; RESP 18; TEMP 98.6; O2SAT 99
== END 2024-12-28 20:38 | disposition home or self-care (01) ==
LOC: ER 18:13
DX: K08.89 Other specified disorders of teeth and supporting structures (principal); J45.909 Unspecified asthma, uncomplicated; M19.90 Unspecified osteoarthritis, unspecified site
CPT/HCPCS: 64400; 96372; 99284; J1885; S0020